=== PATIENT | male | born 1955 | race Caucasian/White ===

== ENCOUNTER → 2018-09-11 | Outpatient (CLI) | payer BC ==
[~2018-09-11] MED LIST: ASPI-757 PO; INSU100I30 SQ; INSU100I35 SQ; LANI SQ; PRAV10TA45 PO; PRAV20TA65 PO; RAMI10CA72 PO; RAMI10CA93 PO; SILD20TA PO; SIMV-54 PO; WARF5TAB23 PO; [UNRECOGNIZED DRUG - OTHER]
== END ==
LOC: US 02:22
PROVIDERS: ATTEND Internal Medicine
DX: I51.7 Cardiomegaly (principal); Z95.2 Presence of prosthetic heart valve
CPT/HCPCS: 93306

== ENCOUNTER → 2018-09-15 | Outpatient (REF) | payer BC | LOC: ZZSENDIN 12:58 | PROVIDERS: ATTEND Family Medicine | DX: R97.20 Elevated prostate specific antigen [PSA] (principal) | CPT/HCPCS: 84153 ==

== ENCOUNTER → 2019-02-25 | Outpatient (CLI) | payer MEDICARE ==
[~2019-02-25] MED LIST changes: +CALC500T6 PO; +CHOL10005 PO; +MULT1CAP59 PO; +OMEG-96 PO
--- NOTE | 2019-02-25 10:21 | EKG ---
FACILITY: [facility] - [place] PATIENT NAME: LEANN ROUSSEAU : [id number] MR: [id number] V: [id number] EXAM DATE: ORDERING PHYSICIAN: TRENT MARMOLEJO TECHNOLOGIST: OPAL Godwin Reason : PREOP-COLON Blood Pressure : / mmHG Vent. Rate : 065 BPM Atrial Rate : 065 BPM P-R Int : 158 ms QRS Dur : 098 ms QT Int : 422 ms P-R-T Axes : 076 072 070 degrees QTc Int : 438 ms Sinus rhythm with occasional PJCs/PVCs Possible Left atrial enlargement Decreased R wave progression anteriorly Borderline ECG No previous ECGs available Confirmed by FAHAD GUTHRIE ([id number] on 02/26/2019 4:45:59 AM Referred By: FRANCIE Confirmed By:FAHAD GUTHRIE
== END ==
LOC: RESP 10:09
PROVIDERS: ATTEND Surgery
DX: R94.31 Abnormal electrocardiogram [ECG] [EKG] (principal)
CPT/HCPCS: 93005

== ENCOUNTER 2019-04-15 01:30 | Day surgery (SDC) | payer MEDICARE, OTHER ==
[~2019-04-15] VITALS: Ht 170.2 cm; Wt 70.8 kg
[~2019-04-15 01:30] MED LIST changes: +CAL1TABL PO
[2019-04-15 06:04] VITALS: BP 128/75
[2019-04-15] MEDS ORDERED: NORMOSOL R SOLN(*) 1000 ML BAG 1,000 ML IV PRN (06:30)
[2019-04-15] MEDS ORDERED: LIDOCAINE/SOD BICARB 8.4% SYR ID ONE (06:30)
[2019-04-15 08:27] VITALS: BP 85/51
--- NOTE | 2019-04-15 08:29 | Short(Outpt) Discharge Summary ---
Discharge Summary Reason for Hosp/Final Diag: (1) Colon cancer screening Status: Chronic Hospital Course & Plan: Colonoscopy completed without problems; normal. Departure Discharge to: Home, Self Care Discharge Instructions Home Meds Reported Medications Warfarin Sodium (WARFARIN SODIUM) 5 Mg Tablet, 5 MG PO QDAYW, TAB 04/09/19 Warfarin Sodium (WARFARIN SODIUM) 5 Mg Tablet, 7.5 MG PO 2XW, TAB 04/09/19 [place] Phos/Mag Hydrx/C & D3/Phos (PRO-NOEL TABLET) 1 Each Tablet, 1 EACH PO DAILY 04/09/19 Cholecalciferol (Vitamin D3) (VITAMIN D3) 1,000 Unit Tablet, 4000 UNITS PO DAILY, TAB 01/09/19 [place]-3 Fatty Acids/Fish Oil (OMEGA 3 1,000 MG SOFTGEL) 1 Each Capsule, 1 TAB PO QDAY 01/09/19 Multivitamin (MULTIVITAMINS) 1 Each Capsule, 1 TAB PO DAILY 01/09/19 Simvastatin (SIMVASTATIN) 40 Mg Tablet, 40 MG PO HS, TAB 09/30/17 Insulin Aspart 100 Un/Ml Pen (NOVOLOG FLEXPEN) 100 Unit/1 Ml Insuln.pen, 8 UNIT SQ BIDLS 05/22/17 Insulin Aspart 100 Un/Ml Pen (NOVOLOG FLEXPEN) 100 Unit/1 Ml Insuln.pen, 4 UNIT SQ QAM 05/22/17 Insulin Glargine 100 Un/Ml Pen (LANTUS SOLOSTAR PEN) 100 Unit/1 Ml Insuln.pen, 13 UNIT SQ DAILY 05/22/17 Ramipril (ALTACE) 10 Mg Capsule, 10 MG PO HS, CAPSULE 05/22/17 Discontinued Reported Medications Calcium Carbonate (CALCIUM) Unknown Strength Tablet, PO 01/09/19 Discontinued Scripts Warfarin Sodium (WARFARIN SODIUM) 5 Mg Tablet, 1.5-2 TAB PO QODAY, #165 TAB 3 Refills Prov:WON LOVING MD 05/28/18 Diet: Regular Activity: As Tolerated Special Instructions: Your colonoscopy was completed without problems and your prep was excellent (Good Job!!). I didn't find any polyps or other problems. It was normal (other than some diverticuli in your sigmoid colon which are benign outpouchings that 50% of us develop as we age). I recommend that your next colonoscopy be in 10 years. TRENT MARMOLEJO MD Apr 15, 2019 08:29
[2019-04-15 08:30] VITALS: BP 91/54
[2019-04-15 08:44] VITALS: BP 85/54
[2019-04-15 09:00] VITALS: BP 96/73
[2019-04-15 09:01] VITALS: BP 102/86
== END 2019-04-15 09:11 | disposition home or self-care (01) ==
LOC: OR 01:30
PROVIDERS: ATTEND Surgery
DX: Z12.11 Encounter for screening for malignant neoplasm of colon (principal); E11.9 Type 2 diabetes mellitus without complications
CPT/HCPCS: 00812; 36416; 82948; G0121; J2704